=== PATIENT | male | born 1965 | race Caucasian/White ===

== ENCOUNTER → 2017-04-27 | Outpatient (CLI) | payer MEDICAID ==
[~2017-04-27] MED LIST: DIAZEPAM10 MG PO; LORATADINE 10MG10 M1 PO; METAXALONE800 MG PO; NAPROXEN EC500 MG PO; PERCOCET 10 MG1 EACH PO; VENTOLIN H0.09 MG/AC IH
[2017-04-27 15:49] LABS: AMPHETAMINES/METAMPHETAMINES NEGATIVE ng/mL (<1000)
[2017-05-02 10:40] LABS: Opiates Negative (Cutoff=100)
== END ==
LOC: LAB 13:52
PROVIDERS: Anesthesiology
DX: Z79.899 Other long term (current) drug therapy (principal)